=== PATIENT | male | born 1985 ===

== ENCOUNTER → 2018-12-17 | Outpatient (CLI) | payer BC ==
[2018-12-17 10:22] LABS: Basophils # (auto) 0 uL; Basophils % (auto) 0.4 % (0.0-2.0); Eosinophils # (auto) 0.2 uL; Eosinophils % (auto) 2.7 % (0.0-7.0); Hematocrit 49.3 % (41.0-53.0); Hemoglobin 16.7 g/dL (13.5-17.5); Lymphocytes # (auto) 1.8 uL; Lymphocytes % (auto) 27.5 % (10.0-50.0); Mean Corpuscular Hemoglobin 28.4 pg (28.0-32.0); Mean Corpuscular Volume 83.7 fL (80.0-100.0); Monocytes # (auto) 0.4 uL; Monocytes % (auto) 6.3 % (0.0-12.0); Neutrophils # (auto) 4.2 uL; Neutrophils % (auto) 63.1 % (37.0-80.0); Platelet Count (auto) 187 10^3/uL (140-450); Red Blood Cells 5.89 10^6/uL (4.5-5.90); Red Cell Distribution Width 12.7 % (11.8-14.3); White Blood Cell 6.7 10^3/uL (4.4-10.8)
[2018-12-17 11:06] LABS: Albumin 4.5 g/dL (3.4-5.0); BUN/Creatinine Ratio 14.2; Bilirubin, Total 0.6 mg/dL (0.2-1.0); Calcium 8.9 mg/dL (8.5-10.1); Total Protein 8.2 g/dL (6.4-8.2); Uric Acid 7.2 mg/dL (3.5-7.2)
[2018-12-17 11:08] LABS: Hepatitis B Surface Antibody Negative
[2018-12-17 11:46] LABS: Hepatitis A Total Antibody Positive
[2018-12-17 11:50] LABS: Hepatitis B Surface Antigen Negative (Negative)
== END | disposition home or self-care (01) ==
LOC: LAB 09:51
PROVIDERS: ATTEND Internal Medicine
DX: R53.83 Other fatigue (principal); R35.8 Other polyuria; R51 Headache
CPT/HCPCS: 36415; 80053; 80061; 83036; 84443; 84550; 85025; 86038; 86431; 86706; 86708; 86735; 86762; 86765; 87340

== ENCOUNTER → 2025-04-08 | Outpatient (CLI) | payer BC | END | disposition home or self-care (01) | LOC: Rad HDHVI 11:56 | PROVIDERS: ATTEND Internal Medicine Cardiovascular Disease | DX: Z13.6 Encounter for screening for cardiovascular disorders (principal) | CPT/HCPCS: 75571 ==